=== PATIENT | female | born 1990 | race Caucasian/White ===

== ENCOUNTER 2021-04-26 21:21 | Emergency (ER) | payer OTHER ==
[2021-04-26 21:33] VITALS: TEMP 97.9; BMI 26.6
[2021-04-26 22:23] LABS: PH,URINE 6.5 (5.0-8.0); URINE APPEARANCE CLEAR; URINE BILIRUBIN NEGATIVE (NEGATIVE); URINE COLOR YELLOW; URINE GLUCOSE (UA) NEGATIVE (NEGATIVE); URINE KETONE NEGATIVE (NEGATIVE); URINE LEUK ESTERASE NEGATIVE (NEGATIVE); URINE NITRITE NEGATIVE (NEGATIVE); URINE PROTEIN NEGATIVE (NEGATIVE)
[2021-04-26] MEDS ORDERED: SODIUM CHLORIDE 0.9% 500 ML INFUS.BAG IV ONE (22:29)
[2021-04-26] MEDS ORDERED: ACETAMINOPHEN 1000 MG/100 ML VIAL (NON FORMULARY) IVPB ONE (22:29)
[2021-04-26] MEDS ORDERED: ONDANSETRON 4 MG/2 ML VIAL IVPUSH ONE (22:29)
[2021-04-26] MEDS ORDERED: ACETAMINOPHEN INJECTION 100 ML IVPB ONE (22:43)
[2021-04-26] MEDS ORDERED: ONDANSETRON 4 MG/2 ML VIAL ONE (22:43)
[2021-04-26] MEDS ORDERED: FAMOTIDINE 20 MG/50 ML IVPB 20 MG/50 ML MG IVPB ONE ×2 (22:44→23:16)
[2021-04-26 23:14] LABS: BASO % 0.8 % (0-2.0); EOS % 0.6 % (0-4.5); HEMATOCRIT 30.2 % (32.4-45.2); HEMOGLOBIN 9.9 GM/dL (10.7-15.3); LYMPH % 26.5 % (8-40); MCH 20.6 pg (25.7-33.7); MCHC 32.8 g/dl (32.0-36.0); MEAN CELL VOLUME 62.7 fl (80-96); MEAN PLT VOLUME 8.3 fl (7.5-11.1); MONO % 4.9 % (3.8-10.2); NEUT % 67.2 % (42.8-82.8); PLATELET COUNT 288 10^3/uL (134-434); RBC 4.83 M/mm3 (3.60-5.2); RDW 17.6 % (11.6-15.6); WHITE BLOOD COUNT 9.9 K/mm3 (4.0-10.0)
[2021-04-26 23:33] LABS: CALCIUM 10.3 mg/dL (8.5-10.1)
[2021-04-26 23:34] LABS: ALBUMIN 3.9 g/dl (3.4-5.0); BLOOD UREA NITROGEN 12.1 mg/dL (7-18)
[2021-04-26 23:36] LABS: CREATININE 0.5 mg/dL (0.55-1.3)
[2021-04-26 23:38] LABS: BILIRUBIN,TOTAL 0.6 mg/dL (0.2-1); TOT PROT 7.6 g/dl (6.4-8.2)
[2021-04-27 04:33] LABS: ANISOCYTOSIS 2+; MACROCYTOSIS 0; PLATELET ESTIMATE NORMAL
[2021-04-27 06:36] VITALS: BP 118/67; PULSE 60
== END 2021-04-27 06:44 | disposition home or self-care (01) ==
LOC: JER 21:21 → JERBED 04-27 03:05 → UNDOADMIN 04-27 03:05 → JER 04-27 06:44
PROC: 3E0333Z Introduction of Anti-inflammatory into Peripheral Vein, Percutaneous Approach (ICD-10-PCS; principal; 2021-04-26)
PROC: 3E033GC Introduction of Other Therapeutic Substance into Peripheral Vein, Percutaneous Approach (ICD-10-PCS; 2021-04-26)
DX: O99.611 Diseases of the digestive system complicating pregnancy, first trimester (principal); K80.00 Calculus of gallbladder with acute cholecystitis without obstruction; Z3A.10 10 weeks gestation of pregnancy
CPT/HCPCS: 36415; 76705-TC; 76801-TC; 76856-TC; 80053; 81003; 83690; 85025; 87086; 93005; 93010; 99285-25; C9803; J0131; U0003; U0005

== ENCOUNTER 2021-04-30 08:02 | Emergency (ER) | payer OTHER ==
[2021-04-30 08:11] VITALS: BMI 26.6
[2021-04-30 09:23] LABS: BASO % 0.3 % (0-2.0); EOS % 0.7 % (0-4.5); HEMATOCRIT 32.2 % (32.4-45.2); HEMOGLOBIN 10.4 GM/dL (10.7-15.3); LYMPH % 26.1 % (8-40); MCH 20.6 pg (25.7-33.7); MCHC 32.4 g/dl (32.0-36.0); MEAN CELL VOLUME 63.7 fl (80-96); MEAN PLT VOLUME 8.5 fl (7.5-11.1); NEUT % 66.9 % (42.8-82.8); PLATELET COUNT 308 10^3/uL (134-434); RBC 5.05 M/mm3 (3.60-5.2); RDW 17.8 % (11.6-15.6); WHITE BLOOD COUNT 8.7 K/mm3 (4.0-10.0)
[2021-04-30 09:30] LABS: PROTHROMBIN TIME (PATIENT) 12.1 SEC (9.7-13.0)
[2021-04-30 09:32] LABS: ACTIVATED PTT 28.2 SECONDS (25.2-36.5)
[2021-04-30 09:58] LABS: PH,URINE 5.5 (5.0-8.0); URINE APPEARANCE CLEAR; URINE BILIRUBIN NEGATIVE (NEGATIVE); URINE COLOR DK YELLOW; URINE GLUCOSE (UA) NEGATIVE (NEGATIVE); URINE KETONE NEGATIVE (NEGATIVE); URINE LEUK ESTERASE NEGATIVE (NEGATIVE); URINE NITRITE NEGATIVE (NEGATIVE); URINE PROTEIN NEGATIVE (NEGATIVE)
[2021-04-30 10:09] LABS: ALBUMIN 3.9 g/dl (3.4-5.0); BILIRUBIN,TOTAL 0.7 mg/dL (0.2-1); BLOOD UREA NITROGEN 8.9 mg/dL (7-18); CALCIUM 11.2 mg/dL (8.5-10.1); CREATININE 0.6 mg/dL (0.55-1.3); TOT PROT 7.7 g/dl (6.4-8.2)
[2021-04-30] MEDS ORDERED: FAMOTIDINE 20 MG/50 ML IVPB 20 MG/50 ML MG IVPB ONE ×2 (10:30→10:43)
[2021-04-30] MEDS ORDERED: METOCLOPRAMIDE HCL INJECTION 10 MG/2 ML VIAL IVPUSH ONE (12:27)
[2021-04-30 12:51] LABS: ANISOCYTOSIS 1+; MACROCYTOSIS 0; OVALOCYTE 1+; PLATELET ESTIMATE NORMAL; TEAR DROP CELLS 1+
[2021-04-30 14:54] VITALS: BP 98/63; PULSE 66; TEMP 97.7
== END 2021-04-30 22:38 | disposition home or self-care (01) ==
LOC: JER 08:02
PROC: 3E033NZ Introduction of Analgesics, Hypnotics, Sedatives into Peripheral Vein, Percutaneous Approach (ICD-10-PCS; principal; 2021-04-30)
PROC: 3E033GC Introduction of Other Therapeutic Substance into Peripheral Vein, Percutaneous Approach (ICD-10-PCS; 2021-04-30)
PROC: 3E033GC Introduction of Other Therapeutic Substance into Peripheral Vein, Percutaneous Approach (ICD-10-PCS; 2021-04-30)
DX: R10.31 Right lower quadrant pain (principal)
CPT/HCPCS: 36415; 72195-TC; 74181-TC; 76705-TC; 76856-TC; 80053; 81003; 83690; 84702; 85025; 85610; 85730; 87086; 93005; 93010; 99284-25

== ENCOUNTER 2021-11-13 04:45 | Inpatient (IN) | payer OTHER ==
[2021-11-13] MEDS: ELECTROLYTE-148 SOLN 1,000 ML IV SCH (05:00)
[2021-11-13 06:08] VITALS: BMI 34.7
[2021-11-13 06:25] LABS: BASO % 0.2 % (0-2.0); EOS % 0.7 % (0-4.5); HEMATOCRIT 30.3 % (32.4-45.2); HEMOGLOBIN 9.7 GM/dL (10.7-15.3); LYMPH % 20.9 % (8-40); MCH 21.6 pg (25.7-33.7); MEAN CELL VOLUME 67.7 fl (80-96); MEAN PLT VOLUME 8.6 fl (7.5-11.1); MONO % 5.3 % (3.8-10.2); NEUT % 72.9 % (42.8-82.8); PLATELET COUNT 254 10^3/uL (134-434); RBC 4.47 M/mm3 (3.60-5.2); RDW 17.5 % (11.6-15.6); WHITE BLOOD COUNT 11.8 K/mm3 (4.0-10.0)
[2021-11-13 06:31] LABS: INR 0.97 (0.83-1.09); PROTHROMBIN TIME (PATIENT) 11.2 SEC (9.7-13.0)
[2021-11-13 06:33] LABS: ACTIVATED PTT 26.8 SECONDS (25.2-36.5)
[2021-11-13 06:45] LABS: BLOOD UREA NITROGEN 8.9 mg/dL (7-18)
[2021-11-13 06:48] LABS: CREATININE 0.5 mg/dL (0.55-1.3)
[2021-11-13] MEDS ORDERED: OXYTOCIN 30 UNITS in 0.9% NS 30 UNIT/500 ML INFUS.BAG IVPB SCH (07:30)
[2021-11-13] MEDS ORDERED: BUTORPHANOL TARTRATE 2 MG/ML VIAL IVPB ONE (07:30)
[2021-11-13] MEDS ORDERED: PROMETHAZINE HCL 25 MG/1 ML VIAL IVPB ONE (07:30)
[2021-11-13] MEDS ORDERED: FENTANYL/BUPIVACAINE/NS/PF - PCEA - 50 ML DISP.SYRIN EP ONE ×2 (07:54→13:09)
[2021-11-13] MEDS ORDERED: NALOXONE HCL 0.4 MG/ML VIAL IVPUSH PRN (08:19)
[2021-11-13] MEDS ORDERED: LIDOCAINE HCL 1% PRESERVATIVE FREE - 30ML VIAL ONE ×3 (08:22→15:12)
[2021-11-13] MEDS ORDERED: BUPIVACAINE HCL/PF 0.25% (2.5MG/ML) 10 ML VIAL ONE ×2 (08:22→09:11)
[2021-11-13] MEDS ORDERED: LIDOCAINE HCL/EPINEPHRINE/PF 20 ML VIAL ONE ×2 (08:22→09:11)
[2021-11-13] MEDS ORDERED: FENTANYL/BUPIVACAINE/NS/PF - PCEA - 50 ML DISP.SYRIN EP SCH (08:30)
[2021-11-13 10:14] LABS: POC NITRAZINE POS
[2021-11-13] MEDS ORDERED: OXYTOCIN 30 UNITS in 0.9% NS 30 UNIT/500 ML INFUS.BAG IVPB ONE (11:06)
[2021-11-13 11:44] LABS: ANISOCYTOSIS 1+; MACROCYTOSIS 2+; OVALOCYTE 1+; PLATELET ESTIMATE NORMAL; TEAR DROP CELLS 2+
[2021-11-13] MEDS ORDERED: OXYTOCIN 20 UNITS in 0.9% NS 20 UNIT/1,000 ML INFUS.BAG IV ONE (15:12)
[2021-11-13] MEDS ORDERED: METHYLERGONOVINE MALEATE 0.2 MG/1 ML AMP IM PRN (16:22)
[2021-11-13] MEDS ORDERED: BENZOCAINE 20% 57 GM BOTTLE TP PRN (16:22)
[2021-11-13] MEDS ORDERED: BENZOCAINE 28 GM HEMORRHOIDAL OINTMENT TP PRN (16:22)
[2021-11-13] MEDS ORDERED: WITCH HAZEL 50% (TUCKS) 40 PAD/JAR PAD TP PRN (16:22)
[2021-11-13] MEDS ORDERED: BISACODYL 10 MG SUPP.RECT RC PRN (16:22)
[2021-11-13] MEDS ORDERED: OXYTOCIN 20 UNITS in 0.9% NS 20 UNIT/1,000 ML INFUS.BAG IV SCH (16:30)
[2021-11-13] MEDS ORDERED: D5W-LR W/ 20 UNITS OXYTOCIN 1,000 ML IV SCH (16:30)
[2021-11-13 16:47] LABS: CORD HCO3 23.3 mmHg (20-29); CORD pH 7.322 (7.14-7.44)
[2021-11-13 16:49] LABS: CORD BASE EXCESS -3.6 mmol/L (0-2); CORD PCO2 52.7 mmHg (30-78); CORD pH 7.276 (7.14-7.44)
[2021-11-13] MEDS: IBUPROFEN 600 MG TABLET (FP) PO PRN (21:06)
[2021-11-13] MEDS: ACETAMINOPHEN 325 MG TABLET (FP) PO PRN (23:35)
[2021-11-14] MEDS: IBUPROFEN 600 MG TABLET (FP) PO PRN ×2 (07:43→19:08)
[2021-11-14 08:31] LABS: BASO % 0.1 % (0-2.0); EOS % 0.4 % (0-4.5); HEMATOCRIT 26.8 % (32.4-45.2); HEMOGLOBIN 8.3 GM/dL (10.7-15.3); LYMPH % 13.7 % (8-40); MCH 21.2 pg (25.7-33.7); MCHC 30.8 g/dl (32.0-36.0); MEAN CELL VOLUME 68.7 fl (80-96); MEAN PLT VOLUME 8.7 fl (7.5-11.1); MONO % 5.5 % (3.8-10.2); NEUT % 80.3 % (42.8-82.8); PLATELET COUNT 245 10^3/uL (134-434); RBC 3.91 M/mm3 (3.60-5.2); WHITE BLOOD COUNT 17.8 K/mm3 (4.0-10.0)
[2021-11-14] MEDS: PRENATAL VITAMINS W/ FOLIC ACID TABLET (FP) PO SCH (09:23)
[2021-11-14] MEDS: ACETAMINOPHEN 325 MG TABLET (FP) PO PRN ×2 (11:22→16:19)
[2021-11-14] MEDS: ELECTROLYTE-148 SOLN 1,000 ML IV SCH (20:29)
[2021-11-14] MEDS: DEXTROSE 5%-LACTATED RINGERS 1,000 ML IV SCH (20:30)
[2021-11-14] MEDS ORDERED: SENNOSIDES/DOCUSATE COMBO (SENNA PLUS) TABLET (UD) PO PRN (22:00)
[2021-11-15] MEDS: IBUPROFEN 600 MG TABLET (FP) PO PRN ×3 (02:11→12:46)
[2021-11-15] MEDS: PRENATAL VITAMINS W/ FOLIC ACID TABLET (FP) PO SCH (09:52)
[2021-11-15 11:21] VITALS: BP 98/63; PULSE 83; TEMP 98.4
== END 2021-11-15 17:25 | disposition home or self-care (01) | DRG 807 ==
LOC: JLDR 04:45 → J3W 18:10
PROVIDERS: ADMIT Obstetrics & Gynecology; ATTEND Obstetrics & Gynecology
PROC: 10E0XZZ Delivery of Products of Conception, External Approach (ICD-10-PCS; principal; 2021-11-13)
PROC: 0W8NXZZ Division of Female Perineum, External Approach (ICD-10-PCS; 2021-11-13)
DX: O42.02 Full-term premature rupture of membranes, onset of labor within 24 hours of rupture (principal); Z37.0 Single live birth; O70.1 Second degree perineal laceration during delivery; Z3A.38 38 weeks gestation of pregnancy
CPT/HCPCS: 36415; 36600; 59409; 80048; 82803; 83986-QW; 85025; 85610; 85730; 86780; 86850; 86900; 86901; C9803; U0003; U0005

== ENCOUNTER 2022-06-28 20:12 | Emergency (ER) | payer BC, OTHER ==
[2022-06-28 20:22] VITALS: BP 124/82; PULSE 83; RESP 19; TEMP 98.1; BMI 30.7
[2022-06-28 22:33] LABS: BASO % 0.4 % (0-2.0); HEMATOCRIT 31.5 % (32.4-45.2); HEMOGLOBIN 10.4 GM/dL (10.7-15.3); LYMPH % 29.6 % (8-40); MCH 20.5 pg (25.7-33.7); MEAN CELL VOLUME 62.1 fl (80-96); MEAN PLT VOLUME 8.1 fl (7.5-11.1); MONO % 4.7 % (3.8-10.2); NEUT % 64.3 % (42.8-82.8); PLATELET COUNT 372 10^3/uL (134-434); RBC 5.07 M/mm3 (3.60-5.2); RDW 16.2 % (11.6-15.6); WHITE BLOOD COUNT 10.3 K/mm3 (4.0-10.0)
[2022-06-28 22:38] LABS: EPI CELLS 4 /uL (0-25.1); HYALINE CASTS 0 /uL (0-3.1); PH,URINE 5.5 (5.0-8.0); URINE APPEARANCE CLEAR; URINE BACTERIA 135 /uL (0-1359); URINE BILIRUBIN NEGATIVE (NEGATIVE); URINE COLOR YELLOW; URINE GLUCOSE (UA) NEGATIVE (NEGATIVE); URINE KETONE NEGATIVE (NEGATIVE); URINE LEUK ESTERASE NEGATIVE (NEGATIVE); URINE NITRITE NEGATIVE (NEGATIVE); URINE PROTEIN NEGATIVE (NEGATIVE); URINE RBC 8 /uL (0-23.9); URINE UROBILINOGEN 0.2 mg/dL (0.2-1.0); URINE WBC 12 /uL (0-25.8)
[2022-06-28 22:40] LABS: INR 1.09 (0.83-1.09); PROTHROMBIN TIME (PATIENT) 12.6 SEC (9.7-13.0)
[2022-06-28 22:43] LABS: ACTIVATED PTT 33.2 SECONDS (25.2-36.5)
[2022-06-28 23:08] LABS: ANISOCYTOSIS 2+; MACROCYTOSIS 0; OVALOCYTE 1+; TEAR DROP CELLS 1+
== END 2022-06-28 23:00 | disposition home or self-care (01) ==
LOC: JER 20:12
DX: N93.9 Abnormal uterine and vaginal bleeding, unspecified (principal)
CPT/HCPCS: 36415; 76817-TC; 81003; 84702; 85025; 85610; 85730; 99284-25

== ENCOUNTER 2022-09-21 14:26 | Emergency (ER) | payer BC, OTHER ==
[2022-09-21 14:45] VITALS: BP 121/72; PULSE 84; RESP 18; TEMP 98.4; BMI 30.7
[2022-09-21] MEDS ORDERED: KETOROLAC TROMETHAMINE 30 MG/1 ML VIAL IM ONE (15:57)
[2022-09-21] MEDS ORDERED: KETOROLAC TROMETHAMINE 30 MG/1 ML VIAL ONE (16:04)
== END 2022-09-21 16:15 | disposition home or self-care (01) ==
LOC: JER 14:26
PROC: 3E0233Z Introduction of Anti-inflammatory into Muscle, Percutaneous Approach (ICD-10-PCS; principal; 2022-09-21)
DX: U07.1 COVID-19 (principal)
CPT/HCPCS: 0241U-QW; 99284-25

== ENCOUNTER 2023-01-25 02:37 | Observation (INO) | payer OTHER ==
[2023-01-25 02:47] VITALS: BMI 30.7
[2023-01-25] MEDS ORDERED: FAMOTIDINE 20 MG/50 ML IVPB 20 MG/50 ML MG IVPB ONE ×2 (03:43→03:45)
[2023-01-25] MEDS ORDERED: LACTATED RINGERS SOLUTION 1000 ML INFUS.BAG IV ONE (03:43)
[2023-01-25] MEDS ORDERED: ONDANSETRON 4 MG/2 ML VIAL IVPUSH ONE ×3 (03:43→12:03)
[2023-01-25] MEDS ORDERED: ONDANSETRON 4 MG/2 ML VIAL ONE ×3 (03:45→12:13)
[2023-01-25 04:02] LABS: BASO % 0.3 % (0-2.0); EOS % 0.5 % (0-4.5); HEMATOCRIT 33.5 % (32.4-45.2); HEMOGLOBIN 10.9 GM/dL (10.7-15.3); LYMPH % 7.8 % (8-40); MCHC 32.5 g/dl (32.0-36.0); MEAN CELL VOLUME 59.7 fl (80-96); MEAN PLT VOLUME 8.3 fl (7.5-11.1); MONO % 3.4 % (3.8-10.2); PLATELET COUNT 308 10^3/uL (134-434); RDW 16.3 % (11.6-15.6); WHITE BLOOD COUNT 11.9 K/mm3 (4.0-10.0)
[2023-01-25 04:04] LABS: MCH 19.4 pg (25.7-33.7)
[2023-01-25 04:08] LABS: INR 1.07 (0.83-1.09); PROTHROMBIN TIME (PATIENT) 12.4 SEC (9.7-13.0)
[2023-01-25 05:11] LABS: PH,URINE 6.5 (5.0-8.0); URINE APPEARANCE CLEAR; URINE BILIRUBIN NEGATIVE (NEGATIVE); URINE COLOR YELLOW; URINE GLUCOSE (UA) NEGATIVE (NEGATIVE); URINE KETONE NEGATIVE (NEGATIVE); URINE LEUK ESTERASE NEGATIVE (NEGATIVE); URINE NITRITE NEGATIVE (NEGATIVE); URINE PROTEIN NEGATIVE (NEGATIVE); URINE UROBILINOGEN 0.2 mg/dL (0.2-1.0)
[2023-01-25 05:32] LABS: ALBUMIN 3.6 g/dl (3.4-5.0); BILIRUBIN,TOTAL 0.6 mg/dL (0.2-1); BLOOD UREA NITROGEN 14.6 mg/dL (7-18); CALCIUM 9.3 mg/dL (8.5-10.1); CREATININE 0.7 mg/dL (0.55-1.3); MAGNESIUM 1.7 mg/dL (1.8-2.4); TOT PROT 7.4 g/dl (6.4-8.2)
[2023-01-25] MEDS ORDERED: HYDROmorphone HCl 2 MG/ML VIAL IVPUSH ONE (05:56)
[2023-01-25] MEDS ORDERED: HYDROmorphone HCl 2 MG/ML VIAL ONE (05:57)
[2023-01-25] MEDS ORDERED: METOCLOPRAMIDE HCL INJECTION 10 MG/2 ML VIAL ONE (05:57)
[2023-01-25] MEDS ORDERED: METOCLOPRAMIDE HCL INJECTION 10 MG/2 ML VIAL IVPB ONE (06:03)
[2023-01-25 06:51] LABS: ANISOCYTOSIS 2+; MACROCYTOSIS 0; TEAR DROP CELLS 1+
[2023-01-26 09:09] LABS: BASO % 0.2 % (0-2.0); EOS % 2.4 % (0-4.5); HEMATOCRIT 31.1 % (32.4-45.2); HEMOGLOBIN 10.4 GM/dL (10.7-15.3); LYMPH % 40.7 % (8-40); MCHC 33.4 g/dl (32.0-36.0); MEAN CELL VOLUME 59.1 fl (80-96); MEAN PLT VOLUME 9.1 fl (7.5-11.1); MONO % 7.1 % (3.8-10.2); NEUT % 49.6 % (42.8-82.8); PLATELET COUNT 269 10^3/uL (134-434); RBC 5.27 M/mm3 (3.60-5.2); RDW 15.9 % (11.6-15.6); WHITE BLOOD COUNT 5.4 K/mm3 (4.0-10.0)
[2023-01-26 09:12] LABS: INR 1.12 (0.83-1.09)
[2023-01-26 09:26] LABS: MCH 19.7 pg (25.7-33.7)
[2023-01-26 09:32] LABS: POTASSIUM 3.9 mmol/L (3.5-5.1)
[2023-01-26 09:37] LABS: ALBUMIN 3.2 g/dl (3.4-5.0); BLOOD UREA NITROGEN 7.1 mg/dL (7-18); CALCIUM 8.9 mg/dL (8.5-10.1); MAGNESIUM 1.8 mg/dL (1.8-2.4)
[2023-01-26 09:40] LABS: CREATININE 0.6 mg/dL (0.55-1.3); PHOSPHOROUS 2.7 mg/dL (2.5-4.9)
[2023-01-26 09:41] LABS: BILIRUBIN,TOTAL 0.4 mg/dL (0.2-1); TOT PROT 6.7 g/dl (6.4-8.2)
[2023-01-26] MEDS ORDERED: ACETAMINOPHEN 1000 MG/100 ML BAG IVPB PRN (09:42)
[2023-01-26] MEDS ORDERED: LACTATED RINGERS SOLUTION 1,000 ML/1,000 ML INFUS.BAG IV SCH (09:45)
[2023-01-26] MEDS ORDERED: PANTOPRAZOLE 40 MG TABLET PO SCH (10:00)
[2023-01-26] MEDS ORDERED: SODIUM CHLORIDE 1,000 ML IV SCH (10:00)
[2023-01-26] MEDS ORDERED: BUPIVACAINE HCL/PF 0.25% (2.5MG/ML) 10 ML VIAL ONE (11:23)
[2023-01-26 11:49] LABS: LDL CHOLESTEROL (ONLY SJRH) 74 mg/dL (5-100)
[2023-01-26] MEDS ORDERED: SEVOFLURANE 250 ML BTL ONE (12:33)
[2023-01-26 12:40] LABS: CHOLESTEROL 151 mg/dL (50-200)
[2023-01-26] MEDS ORDERED: ROCURONIUM BROMIDE 50 MG/5 ML SYRINGE ONE (12:40)
[2023-01-26] MEDS ORDERED: PROPOFOL 20 ML ONE (12:40)
[2023-01-26 12:41] LABS: HDL CHOLESTEROL 56 mg/dL (40-60)
[2023-01-26] MEDS ORDERED: MIDAZOLAM HCL 2 MG/2 ML SINGLE DOSE VIAL ONE (12:41)
[2023-01-26] MEDS ORDERED: LIDOCAINE HCL/PF 2% SDV 5ML VIAL ONE (12:41)
[2023-01-26] MEDS ORDERED: DEXAMETHASONE SOD PHOSPHATE 4 MG/1 ML VIAL ONE (12:41)
[2023-01-26] MEDS ORDERED: KETOROLAC TROMETHAMINE 30 MG/1 ML VIAL ONE (12:41)
[2023-01-26] MEDS ORDERED: ONDANSETRON 4 MG/2 ML VIAL ONE ×2 (12:41→14:17)
[2023-01-26] MEDS ORDERED: HEPARIN NA (PORCINE) 5,000 UNITS/ML 1ML VIAL ONE (12:57)
[2023-01-26] MEDS ORDERED: ceFAZolin SODIUM 1 GM VIAL IVPB ONE (13:15)
[2023-01-26] MEDS ORDERED: ceFAZolin SODIUM 1 GM VIAL ONE (13:17)
[2023-01-26] MEDS ORDERED: BUPIVACAINE HCL/PF 0.25% (2.5MG/ML) 10 ML VIAL IJ ONE (13:20)
[2023-01-26] MEDS ORDERED: NEOSTIGMINE METHYLSULFATE 0.5 MG/1 ML - 10 ML MDV ONE (13:40)
[2023-01-26] MEDS ORDERED: GLYCOPYRROLATE 0.2 MG/1 ML VIAL ONE (13:40)
[2023-01-26] MEDS ORDERED: oxyCODONE HCL 5 MG TABLET PO PRN (14:11)
[2023-01-26] MEDS ORDERED: LACTATED RINGERS SOLUTION 1,000 ML IV SCH ×2 (14:15→15:36)
[2023-01-26] MEDS ORDERED: ACETAMINOPHEN INJECTION 100 ML IVPB ONE (15:53)
[2023-01-26] MEDS: ACETAMINOPHEN 1000 MG/100 ML BAG IVPB PRN ×2 (16:10→21:16)
[2023-01-26] MEDS ORDERED: ONDANSETRON *ODT* 4 MG TABLET SL PRN (16:23)
[2023-01-26] MEDS: SODIUM CHLORIDE 1,000 ML IV SCH ×2 (16:50→17:09)
[2023-01-26] MEDS: oxyCODONE HCL 5 MG TABLET PO PRN (18:07)
[2023-01-26 22:34] VITALS: RESP 20
[2023-01-27] MEDS: oxyCODONE HCL 5 MG TABLET PO PRN ×2 (00:20→08:24)
[2023-01-27] MEDS: ACETAMINOPHEN 1000 MG/100 ML BAG IVPB PRN (03:08)
[2023-01-27] MEDS ORDERED: ACETAMINOPHEN 325 MG TABLET (FP) PO PRN ×2 (08:46→09:03)
[2023-01-27] MEDS ORDERED: PANTOPRAZOLE 40 MG TABLET PO SCH (10:00)
[2023-01-27 11:00] VITALS: BP 133/75; PULSE 67; TEMP 98.4
== END 2023-01-27 12:56 | disposition home or self-care (01) ==
LOC: JER 02:37 → JERBED 11:03 → INTOOBSV 11:03 → UNDOADMOB 11:03 → JERBED 14:52 → J8W 18:07
PROVIDERS: ADMIT Internal Medicine; ATTEND Nurse Practitioner Family
PROC: 0FT44ZZ Resection of Gallbladder, Percutaneous Endoscopic Approach (ICD-10-PCS; principal; 2023-01-25)
PROC: 3E033NZ Introduction of Analgesics, Hypnotics, Sedatives into Peripheral Vein, Percutaneous Approach (ICD-10-PCS; 2023-01-25)
PROC: 3E03329 Introduction of Other Anti-infective into Peripheral Vein, Percutaneous Approach (ICD-10-PCS; 2023-01-25)
PROC: 3E033GC Introduction of Other Therapeutic Substance into Peripheral Vein, Percutaneous Approach (ICD-10-PCS; 2023-01-25)
PROC: 3E033NZ Introduction of Analgesics, Hypnotics, Sedatives into Peripheral Vein, Percutaneous Approach (ICD-10-PCS; 2023-01-25)
PROC: 3E0337Z Introduction of Electrolytic and Water Balance Substance into Peripheral Vein, Percutaneous Approach (ICD-10-PCS; 2023-01-25)
DX: R10.9 Unspecified abdominal pain (principal); K58.9 Irritable bowel syndrome, unspecified; K81.9 Cholecystitis, unspecified
CPT/HCPCS: 0241U-QW; 36415; 74177-TC; 76705-TC; 80053; 80061; 81003; 83690; 83735; 84100; 84703; 85025; 85610; 85730; 86850; 86900; 86901; 87086; 88304-TC; 93005; 93010; 94010; 94760; 99285-25; G0378; J1644; Q9967

== ENCOUNTER 2023-02-22 12:51 | Emergency (ER) | payer OTHER ==
[2023-02-22 12:59] VITALS: BP 105/65; PULSE 83; RESP 18; TEMP 98; BMI 29.9
[2023-02-22] MEDS ORDERED: ACETAMINOPHEN 325 MG TABLET (FP) PO ONE (13:55)
[2023-02-22] MEDS ORDERED: ACETAMINOPHEN 325 MG TABLET (FP) ONE (14:43)
[2023-02-22 14:56] LABS: BASO % 0.4 % (0-2.0); EOS % 1.2 % (0-4.5); HEMATOCRIT 33.8 % (32.4-45.2); HEMOGLOBIN 11.1 GM/dL (10.7-15.3); LYMPH % 35.9 % (8-40); MCH 19.7 pg (25.7-33.7); MCHC 32.7 g/dl (32.0-36.0); MEAN CELL VOLUME 60.5 fl (80-96); MEAN PLT VOLUME 9.1 fl (7.5-11.1); MONO % 4.5 % (3.8-10.2); PLATELET COUNT 339 10^3/uL (134-434); RDW 15.6 % (11.6-15.6); WHITE BLOOD COUNT 7.9 K/mm3 (4.0-10.0)
[2023-02-22 15:00] LABS: PH,URINE 7.5 (5.0-8.0); URINE APPEARANCE CLEAR; URINE BILIRUBIN NEGATIVE (NEGATIVE); URINE COLOR YELLOW; URINE GLUCOSE (UA) NEGATIVE (NEGATIVE); URINE KETONE NEGATIVE (NEGATIVE); URINE LEUK ESTERASE NEGATIVE (NEGATIVE); URINE NITRITE NEGATIVE (NEGATIVE); URINE PROTEIN NEGATIVE (NEGATIVE); URINE UROBILINOGEN 0.2 mg/dL (0.2-1.0)
[2023-02-22 15:01] LABS: HCG,QUALITATIVE URINE Negative
[2023-02-22] MEDS ORDERED: KETOROLAC TROMETHAMINE 15 MG/ML VIAL IVPUSH ONE (15:07)
[2023-02-22] MEDS ORDERED: diazePAM 5 MG TABLET PO ONE (15:08)
[2023-02-22 15:15] LABS: POTASSIUM 4.1 mmol/L (3.5-5.1)
[2023-02-22 15:16] LABS: ALBUMIN 4.1 g/dl (3.4-5.0); CALCIUM 10.5 mg/dL (8.5-10.1)
[2023-02-22 15:17] LABS: BLOOD UREA NITROGEN 10.5 mg/dL (7-18)
[2023-02-22 15:19] LABS: CREATININE 0.6 mg/dL (0.55-1.3)
[2023-02-22 15:22] LABS: BILIRUBIN,TOTAL 0.4 mg/dL (0.2-1); TOT PROT 8.2 g/dl (6.4-8.2)
[2023-02-22 15:47] LABS: ANISOCYTOSIS 3+; MACROCYTOSIS 0; OVALOCYTE 1+
[2023-02-22] MEDS ORDERED: diazePAM 5 MG TABLET ONE (16:34)
[2023-02-22] MEDS ORDERED: KETOROLAC TROMETHAMINE 15 MG/ML VIAL ONE (16:34)
== END 2023-02-22 19:44 | disposition home or self-care (01) ==
LOC: JER 12:51
PROC: 3E0333Z Introduction of Anti-inflammatory into Peripheral Vein, Percutaneous Approach (ICD-10-PCS; principal; 2023-02-22)
DX: R10.31 Right lower quadrant pain (principal); R30.0 Dysuria; R11.0 Nausea
CPT/HCPCS: 36415; 74177-TC; 80053; 81003; 83690; 84703; 85025; 87086; 99285-25; Q9967